=== PATIENT | male | born 1930 | race Caucasian/White ===

== ENCOUNTER 2016-05-02 14:30 | Emergency (ER) | payer OTHER, BC ==
[~2016-05-02] VITALS: Ht 180.3 cm; Wt 80.5 kg
[~2016-05-02 14:30] MED LIST: ATORVASTATIN CA20 MG PO; DAILY VALUE1 EACH PO; DOXAZOSIN MESYLA4 MG PO; GLIPIZIDE ER2.5 MG PO; HYDROCHLOROTHIA50 MG PO; LISINOPRIL5 MG PO; LO-DOSE ASPIRIN81 M2 PO; LORTAB 7.5-500473 ML PO; NAPROSYN375 MG PO; PANTOPRAZOLE SO40 MG PO; PERCOCET 5/31 TABLET PO; POTASSIUM CHLO10 ME4 PO; RANITIDINE HCL300 MG PO; VIGAMOX 0.60 DROP/3 LEFT EYE; ZANTAC300 MG PO
[2016-05-02] MEDS ORDERED: CILOXAN 0.100 DROP/5 LEFT EYE (16:02)
[2016-05-02 17:07] VITALS: BP 104/82
== END 2016-05-02 17:39 ==
LOC: EME → EDBD 14:30 → EME 14:30
DX: H26.9 Unspecified cataract (principal); H57.12 Ocular pain, left eye; E11.9 Type 2 diabetes mellitus without complications; I10 Essential (primary) hypertension
CPT/HCPCS: 99281; 99284

== ENCOUNTER 2016-05-06 17:36 | Emergency (ER) | payer OTHER, BC ==
[~2016-05-06] VITALS: Ht 177.8 cm; Wt 83.9 kg
[~2016-05-06 17:36] MED LIST changes: +CILOXAN 0.100 DROP/5 LEFT EYE
[2016-05-06 18:31] LABS: CHLORIDE 102 mEq/L (99-109); POTASSIUM 4.5 mEq/L (3.7-5.4); SODIUM 134 mEq/L (136-147)
[2016-05-06 18:33] LABS: GLUCOSE 127 mg/dL (70-99)
[2016-05-06 18:34] LABS: ANION GAP 9 MEQ/L (2-14)
[2016-05-06 18:37] LABS: GFR ESTIMATE (CALCULATED) 56 mL/min/
[2016-05-06 18:38] LABS: UREA NITROGEN (BUN) 28 mg/dL (9-23)
[2016-05-06 23:47] VITALS: BP 118/77
[2016-05-07 10:06] LABS: TREPONEMA ANTIBODY NEGATIVE (NEGATIVE)
== END 2016-05-07 01:31 | disposition home or self-care (01) ==
LOC: EME 17:36
PROVIDERS: Emergency Medicine
DX: H54.62 Unqualified visual loss, left eye, normal vision right eye (principal); H21.562 Pupillary abnormality, left eye; E78.5 Hyperlipidemia, unspecified; I10 Essential (primary) hypertension; Z85.820 Personal history of malignant melanoma of skin
CPT/HCPCS: 70543; 80048; 85651; 86780; 99281; 99285; J2930; J7040

== ENCOUNTER 2016-05-15 07:13 | Inpatient (IN) | payer OTHER, BC ==
[~2016-05-15] VITALS: Ht 177.8 cm; Wt 80.1 kg
[2016-05-15 07:53] LABS: HEMATOCRIT 32.3 % (38.0-50.0); MCH 29.6 PG (29.0-34.0); MCHC 33.1 G/DL (30.0-36.0); MCV 89.2 FL (86-99); MEAN PLAT.VOLUME 10.2 uM^3 (9.0-12.4); PLATELET COUNT 248 K/uL (156-360); RBC DIS.WIDTH-CV 15.5 % (11.8-14.6); RBC DIS.WIDTH-SD 48.9 % (39-53); RED BLOOD COUNT 3.62 M/uL (4.00-5.50)
[2016-05-15 07:54] LABS: WHITE BLOOD COUNT 12.8 K/uL (4.1-10.2)
[2016-05-15 08:00] LABS: CHLORIDE 103 mEq/L (99-109); POTASSIUM 4.2 mEq/L (3.7-5.4); SODIUM 135 mEq/L (136-147)
[2016-05-15 08:01] LABS: GLUCOSE 105 mg/dL (70-99)
[2016-05-15 08:03] LABS: ANION GAP 9 MEQ/L (2-14)
[2016-05-15 08:05] LABS: GFR ESTIMATE (CALCULATED) > 59 mL/min/
[2016-05-15 08:09] LABS: UREA NITROGEN (BUN) 37 mg/dL (9-23)
[2016-05-15 10:11] LABS: ADD MIUA? NO; BILIRUBIN NEGATIVE; BLOOD NEGATIVE; COLOR YELLOW ((YELLOW)); GLUCOSE (STRIP) NEGATIVE; KETONES NEGATIVE; LEUKOCYTES NEGATIVE; NITRITE NEGATIVE; PROTEIN (STRIP) NEGATIVE; SPECIFIC GRAVITY 1.024 (1.000-1.030); UCUL ADDED? NO; UROBILINOGEN 0.2 MG/DL (0.2-1.0)
[2016-05-15] MEDS ORDERED: ALPHAGAN P100 DROP/5 BOTH EYES (10:33)
[2016-05-15] MEDS ORDERED: PRED FORTE100 DROP/5 LEFT EYE (10:33)
[2016-05-15] MEDS ORDERED: COSOPT EYE DROPS5 ML LEFT EYE (10:34)
[2016-05-15] MEDS ORDERED: ZANTAC300 MG PO (10:36)
[2016-05-15] MEDS ORDERED: TYLENOL EXTRA500 MG PO (10:37)
[2016-05-15 16:47] VITALS: BP 142/62
[2016-05-15 18:03] LABS: POINT-OF-CARE METER ID UU13113831
[2016-05-15 19:29] LABS: HEMATOCRIT 28.2 % (38.0-50.0); MCV 90.4 FL (86-99)
[2016-05-15 22:00] VITALS: BP 154/67
[2016-05-16 02:58] VITALS: BP 163/72
[2016-05-16 06:31] LABS: ANION GAP 7 MEQ/L (2-14); CHLORIDE 105 MEQ/L (99-109); GFR ESTIMATE (CALCULATED) > 59 mL/min/; GLUCOSE 73 mg/dL (70-99); SAMPLE HEMOLYSIS CHECK 0; SAMPLE ICTERIC CHECK 0; SAMPLE LIPEMIA CHECK 0; SODIUM 138 MEQ/L (136-147); UREA NITROGEN (BUN) 23 mg/dL (9-23)
[2016-05-16 07:09] LABS: HEMATOCRIT 29.5 % (38.0-50.0); MCH 29.4 PG (29.0-34.0); MCHC 32.5 G/DL (30.0-36.0); MCV 90.5 FL (86-99); MEAN PLAT.VOLUME 10.3 uM^3 (9.0-12.4); PLATELET COUNT 214 K/uL (156-360); RBC DIS.WIDTH-CV 15.8 % (11.8-14.6); RBC DIS.WIDTH-SD 52.4 % (39-53); RED BLOOD COUNT 3.26 M/uL (4.00-5.50)
[2016-05-16 07:12] LABS: WHITE BLOOD COUNT 6.3 K/uL (4.1-10.2)
[2016-05-16 08:43] LABS: POINT-OF-CARE METER ID UU13113831
[2016-05-16 08:55] VITALS: BP 168/74
[2016-05-16 12:20] VITALS: BP 158/72
[2016-05-16 12:43] LABS: POINT-OF-CARE METER ID UU13113831
[2016-05-16] MEDS ORDERED: FIORICET,ESG1 TABLET PO (14:36)
[2016-05-16] MEDS ORDERED: ANTIVERT25 MG PO (14:36)
[2016-05-16] MEDS ORDERED: ELAVIL10 MG PO (14:36)
[2016-05-16 16:15] VITALS: BP 124/62
[2016-05-16 16:44] LABS: HEMATOCRIT 29.9 % (38.0-50.0); MCV 90.3 FL (86-99)
[2016-05-16 20:00] VITALS: BP 112/58
[2016-05-17] VITALS: BP 157/74
[2016-05-17 06:07] LABS: HEMATOCRIT 30.7 % (38.0-50.0); MCH 29.9 PG (29.0-34.0); MCHC 32.9 G/DL (30.0-36.0); MCV 90.8 FL (86-99); MEAN PLAT.VOLUME 10.7 uM^3 (9.0-12.4); PLATELET COUNT 200 K/uL (156-360); RBC DIS.WIDTH-CV 15.8 % (11.8-14.6); RBC DIS.WIDTH-SD 52.8 % (39-53); RED BLOOD COUNT 3.38 M/uL (4.00-5.50); WHITE BLOOD COUNT 6.4 K/uL (4.1-10.2)
[2016-05-17 08:11] LABS: POINT-OF-CARE METER ID UU14162513
[2016-05-17 08:15] VITALS: BP 130/61
[2016-05-17 12:10] LABS: POINT-OF-CARE METER ID UU14162513
[2016-05-17 12:27] VITALS: BP 98/57
[2016-05-17 12:29] VITALS: BP 90/53
[2016-05-17 16:30] LABS: ANION GAP 6 MEQ/L (2-14); CHLORIDE 106 MEQ/L (99-109); GFR ESTIMATE (CALCULATED) > 59 mL/min/; POTASSIUM 3.7 MEQ/L (3.7-5.4); SAMPLE HEMOLYSIS CHECK 0; SAMPLE ICTERIC CHECK 0; SAMPLE LIPEMIA CHECK 0; SODIUM 137 MEQ/L (136-147); UREA NITROGEN (BUN) 23 mg/dL (9-23)
[2016-05-17 16:33] LABS: GLUCOSE 180 mg/dL (70-99)
[2016-05-17 17:54] LABS: POINT-OF-CARE METER ID UU13113831
[2016-05-17 20:25] VITALS: BP 148/67
[2016-05-18 00:20] VITALS: BP 142/85
[2016-05-18 04:51] VITALS: BP 165/77
[2016-05-18 07:20] LABS: POINT-OF-CARE METER ID UU14162513
[2016-05-18 08:27] VITALS: BP 183/74
[2016-05-18 08:31] LABS: ANTI-NUCLEAR AB SCRN/RFLX(ANA) NONREACTIVE (NONREACTIVE)
[2016-05-18 08:45] LABS: HEMATOCRIT 30.6 % (38.0-50.0); MCH 29.8 PG (29.0-34.0); MCHC 32.7 G/DL (30.0-36.0); MCV 91.1 FL (86-99); MEAN PLAT.VOLUME 10.5 uM^3 (9.0-12.4); PLATELET COUNT 184 K/uL (156-360); RBC DIS.WIDTH-CV 15.8 % (11.8-14.6); RBC DIS.WIDTH-SD 52.2 % (39-53); RED BLOOD COUNT 3.36 M/uL (4.00-5.50); WHITE BLOOD COUNT 6.3 K/uL (4.1-10.2)
[2016-05-18 09:19] LABS: ANION GAP 5 MEQ/L (2-14); CHLORIDE 106 MEQ/L (99-109); GFR ESTIMATE (CALCULATED) > 59 mL/min/; POTASSIUM 3.9 MEQ/L (3.7-5.4); SAMPLE HEMOLYSIS CHECK 0; SAMPLE ICTERIC CHECK 0; SAMPLE LIPEMIA CHECK 0; SODIUM 138 MEQ/L (136-147); UREA NITROGEN (BUN) 18 mg/dL (9-23)
[2016-05-18 09:21] LABS: GLUCOSE 94 mg/dL (70-99)
[2016-05-18 09:45] LABS: LYME DISEASE SEROLOGY SCREEN NEGATIVE (NEGATIVE)
[2016-05-18 12:38] VITALS: BP 114/57
[2016-05-18 12:43] LABS: POINT-OF-CARE METER ID UU14162513
== END 2016-05-18 16:41 | DRG 149 ==
LOC: EME → EDBD 07:13 → EME 07:13 → EDOF 09:55 → 5WEST 11:53
PROVIDERS: Emergency Medicine; Hospitalist; Internal Medicine; Internal Medicine Gastroenterology; Nurse Practitioner Adult Health; Specialist
DX: R42 Dizziness and giddiness (principal); R51 Headache; D50.0 Iron deficiency anemia secondary to blood loss (chronic); E11.9 Type 2 diabetes mellitus without complications; I10 Essential (primary) hypertension; E78.5 Hyperlipidemia, unspecified; Z66 Do not resuscitate; D72.829 Elevated white blood cell count, unspecified
CPT/HCPCS: 70450; 70551; 80048; 81003; 82272; 82948; 85014; 85018; 85027; 85651; 86038; 86140; 86618; 86850; 86900; 86901; 93005; 99281; 99284; C9113; G0378; G8978 GP CJ; G8979 GP CI; J1815; J7030; J7120

== ENCOUNTER 2016-09-04 06:58 | Observation (INO) | payer OTHER, BC ==
[~2016-09-04] VITALS: Ht 177.8 cm; Wt 78.0 kg
[~2016-09-04 06:58] MED LIST changes: +ALPHAGAN P100 DROP/5 BOTH EYES; +ANTIVERT25 MG PO; +COSOPT EYE DROPS5 ML LEFT EYE; +ELAVIL10 MG PO; +FIORICET,ESG1 TABLET PO; +PRED FORTE100 DROP/5 LEFT EYE; +TYLENOL EXTRA500 MG PO
[2016-09-04] MEDS ORDERED: MELATIN3 MG PO (07:17)
[2016-09-04] MEDS ORDERED: FEOSOL325 MG PO (07:17)
[2016-09-04] MEDS ORDERED: NEXIUM40 MG PO (07:17)
[2016-09-04] MEDS ORDERED: TRUSOPT5 ML LEFT EYE (07:18)
[2016-09-04 08:21] LABS: EOSINOPHIL (%) 3.5 % (0-5); EOSINOPHIL COUNT 0.2 K/uL (0-0.3); HEMATOCRIT 39.5 % (38.0-50.0); IMMATURE GRANULOCYTE (%) 0.2 % (0.0-0.7); INSTRUMENT ABS NEUTROPHIL CT 3.4 K/uL; MCH 30.6 PG (29.0-34.0); MCHC 33.9 G/DL (30.0-36.0); MCV 90.2 FL (86-99); MEAN PLAT.VOLUME 9.9 uM^3 (9.0-12.4); MONOCYTE COUNT 0.6 K/uL (0-0.8); NEUTROPHIL (%) 65.2 % (45-76); NEUTROPHIL COUNT 3.4 K/uL (1.8-6.4); PLATELET COUNT 224 K/uL (156-360); RBC DIS.WIDTH-CV 12.8 % (11.8-14.6); RBC DIS.WIDTH-SD 42.2 % (39-53); RED BLOOD COUNT 4.38 M/uL (4.00-5.50); WHITE BLOOD COUNT 5.2 K/uL (4.1-10.2)
[2016-09-04 08:49] LABS: ANION GAP 7 MEQ/L (2-14); CHLORIDE 105 MEQ/L (99-109); POTASSIUM 4.2 MEQ/L (3.7-5.4); SAMPLE HEMOLYSIS CHECK 0; SAMPLE ICTERIC CHECK 0; SAMPLE LIPEMIA CHECK 0; SODIUM 140 MEQ/L (136-147)
[2016-09-04 08:54] LABS: GFR ESTIMATE (CALCULATED) > 59 mL/min/; GLUCOSE 103 mg/dL (70-99); UREA NITROGEN (BUN) 18 mg/dL (9-23)
[2016-09-04 13:57] LABS: TROP-I INTERPRETATION NEGATIVE; TROPONIN-I < 0.01 ng/mL (0.0-0.30)
[2016-09-04 14:03] VITALS: BP 177/84
[2016-09-04 15:08] VITALS: BP 129/61
[2016-09-04 19:21] LABS: TROP-I INTERPRETATION NEGATIVE; TROPONIN-I < 0.01 ng/mL (0.0-0.30)
[2016-09-04 20:02] VITALS: BP 130/68
[2016-09-05] VITALS (10 sets, daily range): BP systolic 129–192; BP diastolic 60–89
[2016-09-06 00:45] VITALS: BP 125/60
[2016-09-06 02:17] LABS: POINT-OF-CARE METER ID UU14188577
[2016-09-06 03:56] VITALS: BP 164/80
[2016-09-06 08:39] VITALS: BP 146/63
[2016-09-06] MEDS ORDERED: AMLODIPINE BESYL5 MG PO (09:40)
[2016-09-06 10:51] LABS: HEMATOCRIT 37.6 % (38.0-50.0); MCH 30.7 PG (29.0-34.0); MCV 90.2 FL (86-99); MEAN PLAT.VOLUME 10.1 uM^3 (9.0-12.4); PLATELET COUNT 232 K/uL (156-360); RBC DIS.WIDTH-CV 12.9 % (11.8-14.6); RBC DIS.WIDTH-SD 42.5 % (39-53); RED BLOOD COUNT 4.17 M/uL (4.00-5.50); WHITE BLOOD COUNT 6.5 K/uL (4.1-10.2)
[2016-09-06 11:13] LABS: ANION GAP 7 MEQ/L (2-14); CHLORIDE 105 MEQ/L (99-109); GFR ESTIMATE (CALCULATED) > 59 mL/min/; GLUCOSE 123 mg/dL (70-99); POTASSIUM 3.8 MEQ/L (3.7-5.4); SAMPLE HEMOLYSIS CHECK 0; SAMPLE ICTERIC CHECK 0; SAMPLE LIPEMIA CHECK 0; SODIUM 138 MEQ/L (136-147); UREA NITROGEN (BUN) 23 mg/dL (9-23)
[2016-09-06 11:46] VITALS: BP 125/96
[2016-09-06] MEDS ORDERED: MECLIZINE HCL25 MG PO (12:38)
[2016-09-06 13:30] VITALS: BP 123/59
== END 2016-09-06 13:36 | disposition home health service (06) ==
LOC: EME 06:58 → EDOF 11:25 → 3EAST 13:44
PROVIDERS: Emergency Medicine; Internal Medicine; Physician Assistant
DX: R55 Syncope and collapse (principal); S20.219A Contusion of unspecified front wall of thorax, initial encounter; W19.XXXA Unspecified fall, initial encounter; R42 Dizziness and giddiness; E11.9 Type 2 diabetes mellitus without complications; I10 Essential (primary) hypertension; E78.5 Hyperlipidemia, unspecified; Z66 Do not resuscitate; R41.0 Disorientation, unspecified
CPT/HCPCS: 70450; 71101; 80048; 82948; 84484; 85025; 85027; 93005; 97530 GP; 99281; 99285; G0378; G8978 GP CJ; G8979 GP CI; G8987 GO CJ; G8988 CI; J0360; J1630; J1650; J7030; J7040

== ENCOUNTER 2016-11-02 19:20 | Emergency (ER) | payer OTHER, BC ==
[~2016-11-02] VITALS: Ht 177.8 cm; Wt 81.1 kg
[~2016-11-02 19:20] MED LIST changes: +AMLODIPINE BESYL5 MG PO; +FEOSOL325 MG PO; +MECLIZINE HCL25 MG PO; +MELATIN3 MG PO; +NEXIUM40 MG PO; +TRUSOPT5 ML LEFT EYE
[2016-11-02 23:36] VITALS: BP 173/90
== END 2016-11-02 23:37 | disposition home or self-care (01) ==
LOC: EME → EDBD 19:20 → EME 19:20
DX: S09.90XA Unspecified injury of head, initial encounter (principal); V43.52XA Car driver injured in collision with other type car in traffic accident, initial encounter; Y92.410 Unspecified street and highway as the place of occurrence of the external cause; F03.90 Unspecified dementia, unspecified severity, without behavioral disturbance, psychotic disturbance, mood disturbance, and anxiety; Z85.820 Personal history of malignant melanoma of skin; E78.5 Hyperlipidemia, unspecified; E11.9 Type 2 diabetes mellitus without complications; F32.9 Major depressive disorder, single episode, unspecified; M25.521 Pain in right elbow; I10 Essential (primary) hypertension
CPT/HCPCS: 70450; 71020; 73080; 99281; 99284